=== PATIENT | male | born 1955 | race American Indian/Alaskan Native ===

== ENCOUNTER 2020-06-16 11:08 | Outpatient (CLI) | payer OTHER ==
--- NOTE | 2020-06-16 13:35 | Cat Scan Report ---
CT ABDOMEN AND PELVIS WITH CONTRAST HISTORY: PALPABLE ABDOMINAL MASS NEAR UMBILICUS TENDER TO PALPATION 100 ML OM 300 . COMPARISON: None. TECHNIQUE: Helical CT images of the abdomen and pelvis were obtained following administration of intr avenous contrast. Sagittal and coronal reformatted images were reviewed. All CT scans at this [facility] are performed using CT dose reduction for ALARA by means of automated exposure control. CONTRAST: 100 ml of intravenous contrast administered. FINDINGS: Abdomen/pelvis: An umbilical hernia containing fat has a 2 cm neck with the hernia sac measuring 8 c m in diameter. No internal inflammation or fluid. The liver, biliary system, pancreas, spleen, kidneys and adrenal glands are unremarkable. The bowel loops are normal caliber and mucosal pattern. Normal appendix. The bladder, distal ureters and prostate gland are unremarkable. Lungs/bones: No significant abnormality. IMPRESSION: Umbilical hernia containing fat as outlined above. Signer Name: Gregorio Pace Jr, MD Signed: 06/16/2020 1:31 PM Workstation Name: [id number]
--- NOTE | 2020-06-16 15:04 | XRay Report ---
LUMBOSACRAL SPINE 3 VIEWS INDICATION: Low back pain. COMPARISON: None. IMPRESSION: Normal alignment. No significant discogenic DJD or facet arthropathy. No acute osseous or soft tissue abnormality. BILATERAL HIPS 2 VIEWS WITH PELVIS INDICATION: Bilateral hip pain. COMPARISON: None. IMPRESSION: No acute osseous or soft tissue abnormality. No significant DJD. RIGHT SHOULDER 3 VIEWS INDICATION: RIGHT SHOULDER PAIN. COMPARISON: None. IMPRESSION: No acute osseous or soft tissue abnormality. No significant DJD. CERVICAL SPINE 4 VIEWS INDICATION: Neck pain. COMPARISON: None. IMPRESSION: Normal alignment. No significant discogenic DJD or facet arthropathy. No acute osseous or soft tissue abnormality. BILATERAL FEET 2 VIEWS INDICATION: Bilateral foot pain. COMPARISON: None. IMPRESSION: No acute osseous or soft tissue abnormality. No significant DJD. Small bilateral plan tar spurs are noted. Signer Name: Gregorio Pace Jr, MD Signed: 06/16/2020 3:00 PM Workstation Name: [id number]
== END 2020-06-16 11:09 | disposition home or self-care (01) ==
LOC: CT 11:08
DX: M77.32 Calcaneal spur, left foot (principal); M77.31 Calcaneal spur, right foot; R10.30 Lower abdominal pain, unspecified
CPT/HCPCS: 36415; 72040; 72100; 73030; 73521; 73620; 74177; 82565; 84520; Q9967